=== PATIENT | male | born 1980 | race American Indian/Alaskan Native ===

== ENCOUNTER 2017-10-19 21:53 | Emergency (ER) | payer OTHER ==
[2017-10-19 22:17] VITALS: BP 118/70; PULSE 68; RESP 20; TEMP 98; O2SAT 100
--- NOTE | 2017-10-19 23:41 | C.PDOC ---
History Of Present Illness 37 year old male presents to the ER with a complaint of left thumb pain and swelling after he hit his thumb against someone's knee while playing basketball today. Denies weakness or numbness. Time Seen by Provider: 10/19/17 22:43 Chief Complaint (Nursing): Upper Extremity Problem/Injury History Per: Patient History/Exam Limitations: no limitations Onset/Duration Of Symptoms: Hrs Current Symptoms Are (Timing): Still Present Exacerbating Factor(s): Strenuous Use Of Affected Area Recent travel outside of the [place]: No Past Medical History Reviewed: Historical Data, Nursing Documentation, Vital Signs Vital Signs: Last Vital Signs Temp 98 F 10/19/17 22:12 Pulse 68 10/19/17 22:12 Resp 20 10/19/17 23:46 BP 118/70 10/19/17 22:12 Pulse Ox 100 10/19/17 23:42 - Medical History PMH: No Chronic Diseases Surgical History: No Surg Hx Family History: States: Unknown Family Hx - Social History Hx Tobacco Use: No Hx Alcohol Use: Yes Hx Substance Use: No - Immunization History Hx Tetanus Toxoid Vaccination: No Hx Influenza Vaccination: No Hx Pneumococcal Vaccination: No Review Of Systems Musculoskeletal: Positive for: Hand Pain Neurological: Negative for: Weakness, Numbness Physical Exam - Physical Exam Appears: Non-toxic, No Acute Distress Skin: Normal Color, Warm, Dry Head: Atraumatic, Normacephalic Eye(s): bilateral: Normal Inspection Extremity: Normal ROM (with pain, left thumb), Capillary Refill (2< seconds), No Deformity, Other (Swelling and tenderness to left 1st MCP) Pulses: Left Radial: Normal, Right Radial: Normal Neurological/Psych: Oriented x3, Normal Speech, Normal Motor, Normal Sensation ED Course And Treatment O2 Sat by Pulse Oximetry: 100 (Room air) Pulse Ox Interpretation: Normal - Other Rad Left thumb x-ray X-Ray: Interpreted by Me, Viewed By Me Interpretation: No acute fractures or dislocations Progress Note: Left thumb x-ray ordered, results were negative. Patient instructed to use OTC thumb spica for support, take OTC pain medication as needed, and to follow up with PMD for further evaluation and for possible ortho/ hand referral as needed. Disposition Counseled Patient/Family Regarding: Diagnosis, Need For Followup, Rx Given - Disposition Disposition: HOME/ ROUTINE Disposition Time: 23:39 Condition: STABLE Additional Instructions: Please follow up with PMD motrin for pain Apply ICE May use a thumb spica splint for support- May buy one in pharmacy Return to ER if worse Prescriptions: Ibuprofen [Motrin] 600 mg PO Q6H #20 tab Instructions: Finger Sprain (ED) Forms: [employer] (Turkish) - Clinical Impression Clinical Impression: Left thumb sprain - Scribe Statement The provider has reviewed the documentation as recorded by the Scribhelen Rosen All medical record entries made by the Joeibhelen were at my direction and personally dictated by me. I have reviewed the chart and agree that the record accurately reflects my personal performance of the history, physical exam, medical decision making, and the department course for this patient. I have also personally directed, reviewed, and agree with the discharge instructions and disposition.
--- NOTE | 2017-10-20 09:23 | RAD ---
PROCEDURE: Left Thumb radiographs. HISTORY: r/o fx COMPARISON: None. TECHNIQUE: AP radiograph of the left hand, as well as spot oblique and lateral images of thumb were obtained. FINDINGS: LEFT THUMB: Normal left thumb, without fracture or focal lesion. Remainder of the left hand (as seen on the AP view) grossly unremarkable. JOINTS: Normal. SOFT TISSUES: Normal. OTHER FINDINGS: None. IMPRESSION: Normal left thumb radiographs.
== END 2017-10-19 23:46 | disposition home or self-care (01) ==
LOC: C.ER 21:53
DX: S63.602A Unspecified sprain of left thumb, initial encounter (principal); W51.XXXA Accidental striking against or bumped into by another person, initial encounter; Y93.67 Activity, basketball